=== PATIENT | female | born 1935 | race Caucasian/White ===

== ENCOUNTER 2016-12-06 12:54 | Emergency (ER) | payer OTHER, MEDICARE ==
[~2016-12-06] VITALS: Ht 154.9 cm; Wt 59.0 kg
--- NOTE | ~2016-12-06 | EKG ---
[place] [address] 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 EWING : 1935 Requested By: Livan Marsh Order Number: [id number] MD: Miles Hager Measurements Intervals [place] Rate: 91 P: 77 [place]: 121 QRS: 61 QRSD: 84 T: 17 QT: 348 QTc: 429 Interpretive Statements Sinus tachycardia Atrial premature complexes Consider left atrial enlargement Repol abnrm, diffuse leads No previous ECG available for comparison Electronically Signed On 12-07-2016 13:37:10 [employer] by Miles Hager [email or web address] <ELECTRONICALLY SIGNED> By: Miles Hager MD, [facility] 12/07/16 1337 [id number] [id number] Miles Hager MD, FACC /EPI
[2016-12-06] MEDS ORDERED: DIOVAN 80 MG TA80 M1 PO (13:13)
[2016-12-06] MEDS ORDERED: MULTIVITAMINS PO (13:13)
[2016-12-06] MEDS ORDERED: NORVASC5 MG PO (13:13)
[2016-12-06] MEDS ORDERED: HYDROCHLOROTH12.5 M1 PO (13:13)
[2016-12-06] MEDS ORDERED: FLONASE 0.05%50 MCG NASAL (13:13)
[2016-12-06] MEDS ORDERED: OMEGA-31000 M1 PO (13:14)
[2016-12-06] MEDS ORDERED: CALCIUM 600 +1 EA14 PO (13:15)
[2016-12-06] MEDS ORDERED: VITAMIN D3400 UNIT PO (13:16)
[2016-12-06] MEDS ORDERED: CLOBETASOL PROP60 G3 TP (13:17)
[2016-12-06] MEDS ORDERED: VITAMIN E400 UNIT PO (13:17)
[2016-12-06 13:27] LABS: HEMATOCRIT 37.9 % (37.0-47.0); HEMOGLOBIN 12.9 gm/dL (12.0-15.0); MCH 31.7 pg (26.0-34.0); MCHC 34.1 % (28.0-37.0); PLATELET COUNT 338 thou/uL (150-400); RBC 4.07 mil/uL (4.20-5.00); RDW 13.4 % (10.5-14.5); WBC 7.2 thou/uL (4.0-11.0)
[2016-12-06 13:30] LABS: MANUAL DIFF YES
[2016-12-06 13:34] LABS: CALCIUM 9.4 mg/dL (8.5-10.1); CREATININE 0.8 mg/dL (0.6-1.3); POTASSIUM 3.1 mmol/L (3.5-5.1)
[2016-12-06 13:40] LABS: ALBUMIN 2.6 g/dL (3.4-5.0); TOTAL BILIRUBIN 0.8 mg/dL (<0.1-1.0); TOTAL PROTEIN 7.8 g/dL (6.4-8.2)
[2016-12-06 13:52] LABS: TOTAL CELL COUNT 100
[2016-12-06 13:53] LABS: ABSOLUTE NEUTROPHILS 5.3 thou/uL (1.4-8.2)
[2016-12-06] MEDS ORDERED: VENTOLIN HFA 1818 GM INH (14:22)
[2016-12-06] MEDS ORDERED: TESSALON PERLE100 MG PO (14:22)
[2016-12-06] MEDS ORDERED: LEVAQUIN 500 M500 M1 PO (14:22)
[2016-12-06 14:57] VITALS: BP 148/65
== END 2016-12-06 15:05 | disposition home or self-care (01) ==
LOC: ER 12:54
PROVIDERS: Emergency Medicine
DX: J18.9 Pneumonia, unspecified organism (principal); I10 Essential (primary) hypertension; F10.99 Alcohol use, unspecified with unspecified alcohol-induced disorder; Z88.2 Allergy status to sulfonamides

== ENCOUNTER → 2019-04-27 | Outpatient (CLI) | payer OTHER, MEDICARE ==
[~2019-04-27] MED LIST: CALCIUM 600 +1 EA14 PO; CLOBETASOL PROP60 G3 TP; DIOVAN 80 MG TA80 M1 PO; FLONASE 0.05%50 MCG NASAL; HYDROCHLOROTH12.5 M1 PO; LEVAQUIN 500 M500 M1 PO; MULTIVITAMINS PO; NORVASC5 MG PO; OMEGA-31000 M1 PO; TESSALON PERLE100 MG PO; VENTOLIN HFA 1818 GM INH; VITAMIN D3400 UNIT PO; VITAMIN E400 UNIT PO
== END ==
LOC: RAD 11:37
DX: Z12.31 Encounter for screening mammogram for malignant neoplasm of breast (principal)